=== PATIENT | female | born 1995 | race Caucasian/White ===

== ENCOUNTER 2021-12-11 20:10 | Emergency (ER) | payer BC ==
[~2021-12-11 20:10] MED LIST: IBUPROFEN600 MG PO
[2021-12-11] MEDS ORDERED: PERCOCET 5/325 T1 EA PO (23:00)
[2021-12-11] MEDS ORDERED: ZOFRAN ODT 4 MG4 MG GT (23:27)
== END 2021-12-11 23:31 | disposition home or self-care (01) ==
LOC: ER1 20:10
DX: S50.02XA Contusion of left elbow, initial encounter (principal); W55.12XA Struck by horse, initial encounter
CPT/HCPCS: 73060; 73080; 73090; 90471; 90715; 96374; 96375; 96376; 99283; J1885; J2060; J2270; J2405